=== PATIENT | female | born 1990 | race Caucasian/White ===

== ENCOUNTER 2016-04-27 18:07 | Emergency (ER) | payer OTHER ==
[2016-04-27 18:32] VITALS: BP 144/80; PULSE 100; TEMP 97.7; BMI 36.6
--- NOTE | 2016-04-27 19:30 | PDOC ---
History of Present Illness - General Chief Complaint: Cold Symptoms Stated Complaint: COLD SYMPTOMS Time Seen by Provider: 04/27/16 18:09 History Source: Patient Exam Limitations: No Limitations - History of Present Illness Initial Comments: 04/27/16 19:30 26 yr female with flu like symptoms, cough runny nose. Pt's son with same symptoms. Past History - Past Medical History Allergies/Adverse Reactions: Allergies Allergy/AdvReac Type Severity Reaction Status Date / Time No Known Allergies Allergy Verified 04/27/16 18:09 Home Medications: Ambulatory Orders Oseltamivir Phosphate [Tamiflu -] 75 mg PO BID #10 capsule 04/27/16 Asthma: Yes - Psycho/Social/Smoking Cessation Hx Anxiety: No Suicidal Ideation: No Smoking History: Never smoked Have you smoked in the past 12 months: No Information on smoking cessation initiated: No Hx Alcohol Use: No Drug/Substance Use Hx: No Substance Use Type: None Respiratory Specific PMHX - Complaint Specific PMHX Angina: No Bronchitis: No Pneumonia: No Pulmonary Embolus: No TB (Tuberculosis): No Review of Systems - Review of Systems Able to Perform ROS?: Yes Is the patient limited Azeri proficient: No Constitutional: Yes: Symptoms Reported, Fever HEENTM: Yes: Nose Congestion, Throat Pain Respiratory: Yes: Cough *Physical Exam - Vital Signs Last Vital Signs Temp Pulse Resp BP Pulse Ox 97.7 F 100 H 18 144/80 100 04/27/16 18:09 04/27/16 18:09 04/27/16 18:09 04/27/16 18:09 04/27/16 18:09 - Physical Exam General Appearance: Yes: Nourished, Appropriately Dressed HEENT: positive: EOMI, DRAGAN, TMs Normal, Pharynx Normal, Nasal Congestion Neck: positive: Supple Respiratory/Chest: positive: Lungs Clear, Normal Breath Sounds. negative: Chest Tender, Wheezing Cardiovascular: positive: Regular Rhythm, Regular Rate Gastrointestinal/Abdominal: positive: Normal Bowel Sounds, Soft Musculoskeletal: positive: Normal Inspection Extremity: positive: Normal Capillary Refill, Normal Inspection, Normal Range of Motion Integumentary: positive: Normal Color, Dry, Warm Neurologic: positive: Fully Oriented, Alert, Normal Mood/Affect, Normal Response , Motor Strength 5/5 ED Treatment Course - ADDITIONAL ORDERS Additional order review: 04/27/16 18:10 Influenza Types A,B Antigen ([facility]) - Final Nasopharyngeal Swab - Final Medical Decision Making - Medical Decision Making 04/27/16 19:37 cc: fever, nasal congestion, cough non toxic, son with same symptoms no wheezing flu swab sent from triage pt took motrin [employer]. *DC/Admit/Observation/Transfer Diagnosis at time of Disposition: Influenza A - Discharge Dispostion Disposition: HOME Condition at time of disposition: Good - Prescriptions Prescriptions: Oseltamivir Phosphate [Tamiflu -] 75 mg PO BID #10 capsule - Referrals Referrals: STAFF,NOT ON [Primary Care Provider] - - Patient Instructions Additional Instructions: take tamilfu as directed for 5 days take motrin 600mg every 6hrs for fever as needed drink pleanty of fluids to stay hydrated stay at home and rest take cough medicine over the counter as needed follow with your doctor in 2-3 days if any worsening symptoms wash hands frequently
== END 2016-04-27 19:58 | disposition home or self-care (01) ==
LOC: JERFT 18:07 → JER 18:07 → JERFT 19:58
DX: J09.X2 Influenza due to identified novel influenza A virus with other respiratory manifestations (principal)
CPT/HCPCS: 87804; 99281-25

== ENCOUNTER 2021-10-26 17:24 | Emergency (ER) | payer OTHER ==
[2021-10-26 17:51] VITALS: BP 115/74; PULSE 92; RESP 17; TEMP 98.9; BMI 34.7
[2021-10-26 21:49] LABS: EPI CELLS 8 /uL (0-25.1); HYALINE CASTS 0 /uL (0-3.1); PH,URINE 7.5 (5.0-8.0); URINE APPEARANCE CLEAR; URINE BACTERIA 201 /uL (0-1359); URINE BILIRUBIN NEGATIVE (NEGATIVE); URINE COLOR YELLOW; URINE GLUCOSE (UA) NEGATIVE (NEGATIVE); URINE KETONE NEGATIVE (NEGATIVE); URINE LEUK ESTERASE 2+ (NEGATIVE); URINE NITRITE NEGATIVE (NEGATIVE); URINE PROTEIN NEGATIVE (NEGATIVE); URINE RBC 11 /uL (0-23.9); URINE WBC 12 /uL (0-25.8)
== END 2021-10-26 21:35 | disposition home or self-care (01) ==
LOC: JERFT 17:24 → JER 17:24 → JERFT 21:35
DX: M54.50 Low back pain, unspecified (principal); M25.562 Pain in left knee; M79.675 Pain in left toe(s)
CPT/HCPCS: 72100-TC-FY; 73562-TC-LT-FY; 81003; 87077; 87086; 99284-25